=== PATIENT | female | born 1985 | race African-American/Black ===

== ENCOUNTER 2016-06-14 07:30 | Inpatient (IN) | payer OTHER ==
[~2016-06-14] VITALS: Ht 175.3 cm; Wt 78.7 kg
[~2016-06-14 07:30] MED LIST: FERR240T9 PO; PREN-39 PO
[2016-06-14] MEDS ORDERED: LACTATED RINGER'S 1,000 ML IV SCH (13:54)
[2016-06-14] MEDS ORDERED: ONDANSETRON 4 MG INJ ONE (14:00)
[2016-06-14] MEDS ORDERED: OXYTOCIN 30 UNITS/LR 500 ML IV PRN ×2 (14:00→20:30)
[2016-06-14] MEDS ORDERED: CEFAZOLIN 2 GM/50 ML (PMX) 50 ML IV SCH (14:00)
[2016-06-14] MEDS ORDERED: MISOPROSTOL 200 MCG TAB PR PRN ×2 (14:00→20:30)
[2016-06-14] MEDS ORDERED: OXYTOCIN 30 UNITS/LR 500 ML IV SCH (14:00)
[2016-06-14] MEDS ORDERED: METHYLERGONOVINE 0.2 MG INJ IM PRN ×2 (14:00→20:30)
[2016-06-14] MEDS ORDERED: CARBOPROST 250 MCG INJ IM PRN ×2 (14:00→20:30)
[2016-06-14] MEDS ORDERED: morphine SULFATE/PF (10 MG/10 ML) INJ ONE (14:00)
[2016-06-14] MEDS ORDERED: KETOROLAC 30 MG INJ ONE (14:01)
[2016-06-14] MEDS ORDERED: OXYTOCIN 10 UNIT INJ ONE ×2 (14:01→15:57)
[2016-06-14] MEDS ORDERED: METOCLOPRAMIDE 10 MG INJ ONE (14:01)
[2016-06-14] MEDS ORDERED: PHENYLephrine (100 MCG/ML) 5ML SYG ONE ×2 (14:01→15:57)
[2016-06-14] MEDS ORDERED: DEXAMETHASONE 4 MG/ML 1 ML INJ ONE (14:01)
[2016-06-14] MEDS ORDERED: ONDANSETRON 4 MG INJ IV STA (14:03)
[2016-06-14] MEDS ORDERED: CITRIC ACID/NA CITRATE 30 ML CUP PO ONE (14:30)
[2016-06-14 14:36] LABS: ADD SCAN DIFF NO
[2016-06-14 14:40] LABS: BASOPHILS % 0.3 % (0.0-2.0); EOSINOPHILS % 0.6 % (0.0-7.0); HEMATOCRIT 40.3 % (37.0-47.0); HEMOGLOBIN 12.8 g/dl (12.0-16.0); LYMPHOCYTES # 1.5 10^3/ul (0.8-2.9); LYMPHOCYTES % 22.7 % (15.0-51.0); MEAN CORPUSCULAR HEMOGLOBIN 25.8 pg (29.0-33.0); MEAN CORPUSCULAR HGB CONC 31.8 g/dl (32.0-37.0); MEAN CORPUSCULAR VOLUME 81.1 fl (82.0-101.0); MEAN PLATELET VOLUME 11.9 fl (7.4-10.4); MONOCYTE # 0.4 10^3/ul (0.3-0.9); MONOCYTES % 6.6 % (0.0-11.0); NEUTROPHIL # 4.6 10^3/ul (1.6-7.5); NEUTROPHILS % 69.6 % (39.0-77.0); PLATELET COUNT 166 10^3/UL (140-415); RED BLOOD COUNT 4.97 10^6/ul (4.20-5.40); RED CELL DISTRIBUTION WIDTH 13.2 % (11.5-14.5); WHITE BLOOD COUNT 6.7 10^3/ul (4.8-10.8)
[2016-06-14 14:55] VITALS: Ht 175.3 cm; Wt 78.7 kg
[2016-06-14 15:15] LABS: INR 0.95; PROTIME 12.7 Sec (12.2-14.2)
[2016-06-14 15:16] LABS: PARTIAL THROMBOPLASTIN TIME 27.5 Sec (25.0-35.0)
--- NOTE | 2016-06-14 15:31 | HP ---
Date/Time of Note Date/Time of Note DATE: 06/14/16 TIME: 15:29 OB - History Hx of Present Free Text/Dictation scheduled c/s . pt. of Dr. Wilson for care Care: Good Care Ultrasounds: Normal mid trimester US Obstetrical Complications: None Medical Complications: None Past Family/Social History * Past Medical, Surgical, Family and Obstetric Histories reviewed from chart. OB Admission Exam Physical Exam HEENT: WNL Heart: Rhythm Normal Lungs: Clear, Equal Abdomen: WNL Extremities: Normal Reflexes: Normal Accelerations: Accelerations Present Intensity: Moderate Last 72 hours Lab Results CBC & BMP 06/14/16 14:25 OB Assessment/Plan Reason for admission: section Plan: Section MAYCO DALEY MD Jun 14, 2016 15:30
[2016-06-14] MEDS ORDERED: morphine 2 MG INJ IV PRN ×2 (16:00)
[2016-06-14] MEDS ORDERED: HYDROmorphONE 1 MG/ML SYG IV PRN ×2 (16:00)
[2016-06-14] MEDS ORDERED: NALOXONE (0.4 MG/ML) INJ IV PRN (16:00)
[2016-06-14] MEDS ORDERED: ONDANSETRON 4 MG INJ IV PRN (16:00)
--- NOTE | 2016-06-14 16:06 | OPR ---
Operative Report Planned Procedure Free Text/Dictation repeat c/s number 5 Procedure date Jun 14, 2016 Performed by: MAYCO DALEY MD Assisting provider: JORGITO CHAN MD Anesthesia Type: spinal Procedure Description Under satisfactory spinal anesthesia, the patient was prepped and draped and placed in a supine position, tilted to the left. Pfannenstiel incision was made , carried through the subcutaneous tissue. Bleeders brought under control with electrocautery. Fascia incised to the length of the incision. Rectus muscles from the fascia, divided midline. Peritoneum exposed, entered through a transverse incision. Exploration of abdomen revealed gravid uterus.multiple adhesions from the peritoneuim to the omentum and lower uterine section were clamped and cut. The bladder flap was developed. Transverse incision was made in the lower segment of the uterus. Amniotic sac ruptured. []meconium amniotic fluid noted. [] Nasal oropharyngeal suction was performed. The baby was handed to the team for immediate attention. The placenta was delivered manually intact. Uterine cavity was cleaned with wet sponge and drainage established. Uterus closed in 2 layers using [one moncryl ] in continuous fashion. Peritoneal cavity irrigated with warm saline. Sponge, needle and instrument count reported to be correct. Abdominal peritoneum closed with [one monocryl] continuously. Fascia closed with one moncryl [], and skin closed with marc. Estimated blood loss [700]mL. Post-Procedure Findings: Live Baby [], Apgars [] and [], weight [], position [], [] presentation []cord. Specimen removed: Yes Complications: None Pt Condition post procedure: stable Physician Certification I, the undersigned physician, hereby certify that I have discussed the procedure described in this consent form with this patient (or the patient's legal canvas products sales representative), including: * The risk and benefits of the procedure; * Any adverse reactions that may reasonably be expected to occur; * Any alternative efficacious methods of treatment which may be medically viable ; * The potential problems that may occur during recuperation; * Potential for blood transfusion and associated risks/benefits; and * Any research or economic interest I may have regarding this treatment. I further certify that the patient/legally responsible person was encouraged to ask question and that all questions were answered. MAYCO DALEY MD Jun 14, 2016 16:06
[2016-06-14] MEDS ORDERED: DIPHENHYDRAMINE 50 MG INJ ONE (18:09)
[2016-06-14] MEDS: DIPHENHYDRAMINE 50 MG INJ IV PRN (18:25)
[2016-06-14 20:15] VITALS: BP 119/60; PULSE 94; RESP 17
[2016-06-14] MEDS ORDERED: NA PHOSPHATE/BIPHOS 133 ML ENEMA PR PRN (20:30)
[2016-06-14] MEDS ORDERED: ACETAMINOPHEN/CODEINE #3 TAB PO PRN (20:30)
[2016-06-14] MEDS ORDERED: LANOLIN 7 GM TUBE TOP PRN (20:30)
[2016-06-14] MEDS ORDERED: NACL 0.9% 3 ML SYG IV SCH (20:30)
[2016-06-14] MEDS: OXYTOCIN 30 UNITS/LR 500 ML IV SCH (21:43)
[2016-06-14] MEDS: KETOROLAC 30 MG INJ IV PRN (22:37)
[2016-06-14] MEDS: IBUPROFEN 800 MG TAB PO SCH (23:15)
[2016-06-14] MEDS: LACTATED RINGER'S 1,000 ML IV SCH (23:15)
[2016-06-14 23:30] VITALS: BP 120/75; PULSE 80; RESP 19
[2016-06-15] MEDS: DIPHENHYDRAMINE 50 MG INJ IV PRN ×3 (00:30→12:45)
[2016-06-15] MEDS: OXYTOCIN 30 UNITS/LR 500 ML IV SCH (01:57)
[2016-06-15 04:00] VITALS: BP 99/54; PULSE 79; RESP 18
[2016-06-15] MEDS: IBUPROFEN 800 MG TAB PO SCH ×3 (06:00→21:36)
[2016-06-15] MEDS: LACTATED RINGER'S 1,000 ML IV SCH (06:13)
[2016-06-15 08:07] LABS: ADD SCAN DIFF NO
[2016-06-15 08:13] LABS: BASOPHILS % 0.2 % (0.0-2.0); EOSINOPHILS # 0.1 10^3/ul (0.0-0.5); EOSINOPHILS % 1.1 % (0.0-7.0); HEMATOCRIT 32.9 % (37.0-47.0); HEMOGLOBIN 10.6 g/dl (12.0-16.0); LYMPHOCYTES # 1.9 10^3/ul (0.8-2.9); LYMPHOCYTES % 18.2 % (15.0-51.0); MEAN CORPUSCULAR HGB CONC 32.2 g/dl (32.0-37.0); MEAN CORPUSCULAR VOLUME 80.6 fl (82.0-101.0); MEAN PLATELET VOLUME 11.5 fl (7.4-10.4); MONOCYTE # 0.9 10^3/ul (0.3-0.9); MONOCYTES % 8.4 % (0.0-11.0); NEUTROPHIL # 7.5 10^3/ul (1.6-7.5); NEUTROPHILS % 71.8 % (39.0-77.0); PLATELET COUNT 134 10^3/UL (140-415); RED BLOOD COUNT 4.08 10^6/ul (4.20-5.40); WHITE BLOOD COUNT 10.4 10^3/ul (4.8-10.8)
--- NOTE | 2016-06-15 08:16 | OPPN ---
Date/Time of Note Date/Time of Note DATE: 06/15/16 TIME: 08:16 Post-Anesthesia Notes Post-Anesthesia Note Activity: WNL Respiratory function: WNL Cardiovascular function: WNL Mental status: Baseline Pain reasonably controlled: Yes Hydration appropriate: Yes Nausea/Vomiting absent: Yes CINDY COVARRUBIAS MD Jun 15, 2016 08:16
[2016-06-15 10:00] VITALS: BP 89/56; PULSE 71; RESP 20
[2016-06-15] MEDS: KETOROLAC 30 MG INJ IV PRN (10:00)
--- NOTE | 2016-06-15 12:19 | QN ---
Documentation Comment POD#1 is stable afebril tolerates diet No VB +Flatus +Adequate urine VS stable Gen NAD Abd soft NT ND Dressing to be removed Genitalai No blood at perinium ---Ambulation JOAN HUTTON M.D. Jun 15, 2016 12:19
[2016-06-15 15:30] VITALS: BP 104/72; PULSE 80; RESP 18
[2016-06-15] MEDS: OXYCODONE/ACETAMINOPHEN (5/325) TAB PO PRN ×2 (16:53→20:52)
[2016-06-15] MEDS: DIPHENHYDRAMINE 25 MG CAP PO PRN (18:45)
[2016-06-16] MEDS: OXYCODONE/ACETAMINOPHEN (5/325) TAB PO PRN ×4 (01:09→18:47)
[2016-06-16] MEDS: DIPHENHYDRAMINE 25 MG CAP PO PRN ×4 (01:10→22:09)
[2016-06-16] MEDS: IBUPROFEN 800 MG TAB PO SCH ×3 (05:43→22:09)
[2016-06-16 08:40] VITALS: BP 85/51; PULSE 77; RESP 18
[2016-06-16 16:35] VITALS: BP 110/81; PULSE 100; RESP 18
--- NOTE | 2016-06-16 18:27 | PN ---
Date/Time of Note Date/Time of Note DATE: 06/16/16 TIME: 18:24 OB Subjective Subjective Subjective Postop day #2 status post OB Objective Objective Objective Positive flatus No BM Tolerating regular diet HEENT: WNL Abdomen: WNL (Incision clean dry and intact) OB Assessment/Plan Other Assessment: Postop day #2 status post Patient is stable and afebrile Patient has some psychosocial issues that is currently being evaluated by community mental health social worker Other plan: May consider a psych evaluation Continue with present management Encouraged to ambulate Pain meds as needed HUY AQUINO Jun 16, 2016 18:27
[2016-06-16 21:00] VITALS: BP 103/73; PULSE 98; RESP 18
[2016-06-17] MEDS: OXYCODONE/ACETAMINOPHEN (5/325) TAB PO PRN ×2 (02:10→11:57)
[2016-06-17 05:30] VITALS: BP 86/48; PULSE 76; RESP 15
[2016-06-17] MEDS: IBUPROFEN 800 MG TAB PO SCH ×2 (05:46→14:00)
[2016-06-17 08:30] VITALS: BP 122/68; PULSE 68; RESP 16
--- NOTE | 2016-06-17 08:41 | PD.PPDC ---
BUSINESS ADMINISTRATOR Discharge Instruction Condition Patient Condition: Good Diet Diet: Resume Regular Diet Activity/Restrictions Activity: Normal Activity May Shower Restrictions: No Exercising No Lifting No Driving No Sexual Activity Nothing in the Vagina No [place] No Tampons, douche Wound/Drain Care Instructions Wound/Drain Care Instructions: Wash with soap and water Keep clean and dry Follow-up Follow-up with Physician: 6, Week/Weeks Return to clinic for SP[employer] Instructions: Fever greater than 101 Chills Worsening abdominal pain Excessive Vaginal Bleeding More than 2 pads per hour Unable to tolerate diet OB Instructions: Breast Tenderness Depression Blurried Vision Headache Surgical Instructions: Incisional Drainage Incisional Redness MAYCO DALEY MD Jun 17, 2016 08:41
--- NOTE | 2016-06-17 08:43 | DS ---
Date/Time of Note Date/Time of Note DATE: 06/17/16 TIME: 08:42 Discharge Summary Admission/Discharge Info Admit Date/Time Jun 14, 2016 at 13:40 Discharge Date/Time Final Diagnosis term Patient Condition: Stable Hospital Course unremarkable Home Meds Reported Medications Ferrous Gluconate (Iron) 1 Tab Tablet, 1 TAB PO TID 12/11/13 Vits W-Ca,Fe,Fa(<1MG) ( Vitamins) 1 Tab Tablet, 1 TAB PO DAILY 12/11/13 MAYCO DALEY MD Jun 17, 2016 08:43
[2016-06-17] MEDS ORDERED: MEASLES,MUMPS,RUBELLA VACCINE INJ SC* ONE (09:00)
[2016-06-17] MEDS ORDERED: INFLUENZA VIRUS VACCINE 0.5 ML SYG IM* ONE (09:00)
[2016-06-17] MEDS ORDERED: DIPHTH/TET/ACEL PERTUSS (ADULT) 0.5 ML VIAL IM* ONE (09:00)
--- NOTE | 2016-06-17 09:40 | QN ---
Documentation Comment Laborist Pt will not allow provider to see and evaluate her today. Pt was extremely rude upon provider entry and requested RN not have provider return. RN will communicate with Dr. Steinberg regarding pt care plan. SUKHDEEP CUEVAS MD Jun 17, 2016 09:40
== END 2016-06-17 16:12 | disposition home or self-care (01) | DRG 766 ==
LOC: L-D 13:40 → PP1 20:13
PROVIDERS: ADMIT Obstetrics & Gynecology; ATTEND Obstetrics & Gynecology
PROC: 10D00Z1 Extraction of Products of Conception, Low, Open Approach (ICD-10-PCS; principal; 2016-06-14 15:30)
DX: O34.211 Maternal care for low transverse scar from previous cesarean delivery (principal); Z37.0 Single live birth; Z3A.37 37 weeks gestation of pregnancy
CPT/HCPCS: 85025; 85610; 85730; 86592; 86850; 86900; 86901; 87340; 90686; 90715; 94760; 99464; J0690; J1100; J1170; J1200; J1885; J2274; J2370; J2405; J2590; J2765; J7120